=== PATIENT | female | born 1995 | race Caucasian/White ===

== ENCOUNTER → 2019-08-09 11:11 | Outpatient (CLI) | payer OTHER, SELFPAY ==
[2019-08-09 11:53] LABS: Add Manual Diff / Slide Review NO; Alanine Aminotransferase 24 IU/L (9-52); Albumin 4.3 g/dL (3.5-5.0); Albumin Globulin Ratio 1.3 (1.0-2.8); Alkaline Phosphatase 146 U/L (38-126); Aspartate Aminotransferase 29 IU/L (14-36); BUN Creatinine Ratio 13.3 (6-22); Basophils Absolute Auto 0 /uL (0-100); Basophils Percent Auto 0.4 % (0-2); Bilirubin Total 0.5 mg/dL (0.2-1.3); Blood Urea Nitrogen 12 mg/dL (7-17); Calcium 9.8 mg/dL (8.4-10.2); Carbon Dioxide 25 mmol/L (22-32); Chloride 103 mmol/L (98-107); Eosinophils Absolute Auto 0 /uL (0-450); Eosinophils Percent Auto 0.1 % (2-4); Estimated Glomerular Filt Rate > 60.0 mL/min (>60); Globulin 3.2 g/dL (1.7-4.1); Glucose 101 mg/dL (70-100); HEMOLYSIS < 15 (0-50); Hematocrit 41.7 % (36-46); Hemoglobin 14.3 g/dL (12.0-16.0); Lymphocytes Absolute Auto 3200 /uL (1100-4500); Lymphocytes Percent Auto 28.5 % (25-40); Mean Corpuscular HGB Conc 34.4 % (30-36); Mean Corpuscular Hemoglobin 30.6 PG (26-34); Monocytes Absolute Auto 600 /uL (0-900); Monocytes Percent Auto 5.8 % (3-14); Neutrophils Absolute Auto 7300 /uL (1500-7000); Neutrophils Percent Auto 65.2 % (50-75); Platelet Count 217 X10^3/uL (150-400); Potassium 3.8 mmol/L (3.4-5.1); Red Blood Cell Count 4.68 X10^6/uL (4.0-5.2); Red Cell Distribution Width 12.6 % (11.6-14.8); Sodium 138 mmol/L (137-145); Total Protein 7.5 g/dL (6.3-8.2); White Blood Cell Count 11.2 X10^3/uL (4.5-11.0)
[2019-08-09 12:20] LABS: TSH w/ Reflex to FT4 1.37 uIU/mL (0.47-4.68)
== END ==
PROVIDERS: PCP Family Medicine; Visit Provider Family Medicine
DX: L65.9 Nonscarring hair loss, unspecified (principal); N92.0 Excessive and frequent menstruation with regular cycle; R63.5 Abnormal weight gain
CPT/HCPCS: 80053; 84443; 85025